=== PATIENT | male | born 2000 | race Two or more races ===

== ENCOUNTER 2023-10-30 20:09 | Emergency (ER) | payer MEDICAID, OTHER ==
[~2023-10-30] VITALS: Ht 177.8 cm; Wt 65.0 kg
[2023-10-30] MEDS: IBUPROFEN 600 MG TAB PO ONE (20:55)
[2023-10-30 21:54] VITALS: BP 123/86; PULSE 53; RESP 16; TEMP 97.5; O2SAT 98
== END 2023-10-30 22:51 | disposition home or self-care (01) ==
LOC: ER 20:09 → EDBD 20:09 → ER 22:51
DX: S16.1XXA Strain of muscle, fascia and tendon at neck level, initial encounter (principal); S20.219A Contusion of unspecified front wall of thorax, initial encounter; V49.9XXA Car occupant (driver) (passenger) injured in unspecified traffic accident, initial encounter; Y93.89 Activity, other specified; Y92.488 Other paved roadways as the place of occurrence of the external cause; Y99.8 Other external cause status
CPT/HCPCS: 71046; 72040